=== PATIENT | female | born 1970 | race Caucasian/White ===

== ENCOUNTER 2017-09-07 05:09 | Day surgery (SDC) | payer OTHER ==
[~2017-09-07] VITALS: Ht 172.7 cm; Wt 106.6 kg
[~2017-09-07 05:09] MED LIST: ENDOCET 5-3251 EACH PO; Motrin PO; PERCOCET 5/31 TABLET PO; PROTONIX40 MG PO; ZOFRAN4 MG PO
[2017-09-07 06:17] VITALS: BP 131/68
[2017-09-07] MEDS ORDERED: NORCO 5/3251 TABLET PO (10:07)
[2017-09-07 11:17] VITALS: BP 157/95
[2017-09-07 12:15] VITALS: BP 124/64
[2017-09-07 13:53] VITALS: BP 138/78
== END 2017-09-07 13:57 | disposition home or self-care (01) ==
LOC: SDC 05:09
DX: K80.10 Calculus of gallbladder with chronic cholecystitis without obstruction (principal); Z90.49 Acquired absence of other specified parts of digestive tract; I25.10 Atherosclerotic heart disease of native coronary artery without angina pectoris; K21.0 Gastro-esophageal reflux disease with esophagitis; F41.1 Generalized anxiety disorder; Z87.442 Personal history of urinary calculi; Z90.710 Acquired absence of both cervix and uterus; Z86.2 Personal history of diseases of the blood and blood-forming organs and certain disorders involving the immune mechanism
CPT/HCPCS: 74300; 88304; J1100; J1170; J1650; J1885; J2250; J2405; J2710; J2765; J3010; J7120; J7643; Q0175; S0020; S0074